=== PATIENT | male | born 1950 | race Caucasian/White ===

== ENCOUNTER 2025-06-02 09:26 | Emergency (ER) | payer MEDICARE ==
[~2025-06-02] VITALS: Ht 188 cm; Wt 110.0 kg
[2025-06-02] MEDS ORDERED: DIPHTH,PERTUSS(ACELL),TET VAC 0.5 ML SYRINGE IM ONE (10:00)
--- OUTSIDE RECORDS SUMMARY | 2025-06-02 10:21 | XMS ---
PreManage Notification: NARCISA TREJO [employer] Events No recent Security Events currently on file CRITERIA MET - [facility] PROVIDERS JUANA HOLCOMB [facility] [place] Current PHONE: [phone] Vee has no Care Guidelines for this patient. E.Phi VISIT COUNT (12 MO.) Eric Garland [facility] TOTAL 2 NOTE: Visits indicate total known visits. ED/UCC VISIT TRACKING (12 MO.) 06/02/2025 09:28 [facility] TYPE: Emergency COMPLAINT: - LT FINGER INJUR[facility] DIAGNOSES: - Breakdown (mechanical) of aortic (bifurcation) graft (replacement), initial encounter - Contusion of right front wall of thorax, initial encounter - Back Injury - Fall INPATIENT VISIT TRACKING (12 MO.) 02/14/2025 08:12 [facility] TYPE: Vascular Surgery DIAGNOSES: - Abdominal aortic aneurysm, without rupture, unspecified - Infrarenal abdominal aortic aneurysm, without rupture - Juxtarenal abdominal aortic aneurysm, without rupture - THORACOABDOMINAL AORTIC ANEURYSM WITHOUT RUPTURE, UNSPECIFED PART 01/09/2025 05:16 [facility] TYPE: Vascular Surgery DIAGNOSES: - Abdominal aortic aneurysm, without rupture, unspecified - PARARENAL ABDOMINAL AORTIC ANEURYSM WITHOUT RUPTURE [email or web address]
[2025-06-02 10:58] VITALS: BP 156/70
== END 2025-06-02 10:57 | disposition home or self-care (01) ==
LOC: ED 09:26
DX: S61.012A Laceration without foreign body of left thumb without damage to nail, initial encounter (principal); W26.0XXA Contact with knife, initial encounter
CPT/HCPCS: 90471; 90715; 99282-25